=== PATIENT | female | born 1985 | race Caucasian/White ===

== ENCOUNTER 2018-12-27 09:10 | Emergency (ER) | payer OTHER ==
[~2018-12-27] VITALS: Ht 175.3 cm; Wt 130.0 kg
[2018-12-27] MEDS ORDERED: CYCL-259 PO (09:33)
[2018-12-27] MEDS ORDERED: DULO60CA7 PO (09:33)
[2018-12-27] MEDS ORDERED: TRAM50TA2 PO (09:33)
[2018-12-27] MEDS ORDERED: AMIT10TA PO (09:33)
[2018-12-27] MEDS ORDERED: PLEASE ENTER ALLERGIES MC SCH (10:00)
[2018-12-27] MEDS ORDERED: KETOROLAC 30 MG/1 ML IM ONE (10:00)
[2018-12-27] MEDS ORDERED: METHOCARBAMOL 750 MG TABLET PO ONE (10:00)
[2018-12-27] MEDS ORDERED: KETOROLAC 30 MG/1 ML ONE (10:12)
[2018-12-27] MEDS ORDERED: METHOCARBAMOL 750 MG TABLET ONE (10:12)
--- NOTE | 2018-12-27 10:20 | NUR ---
PT DECLINED XRAY UNTIL MEDICATED FOR PAIN. MEDS GIVEN PER ORDERS
--- NOTE | 2018-12-27 10:23 | NUR ---
TO XRAY VIA [facility]
[2018-12-27] MEDS ORDERED: KETOROLAC 30 MG/1 ML IVPush ONE (10:30)
[2018-12-27 11:30] VITALS: BP 117/54
--- NOTE | 2018-12-27 11:31 | NUR ---
Patient/Caregiver given discharge instructions and they have confirmed that they understand the instructions. Patient ambulatory with steady gait.
== END 2018-12-27 11:32 | disposition home or self-care (01) ==
LOC: ED 11:25
DX: M54.16 Radiculopathy, lumbar region (principal)
CPT/HCPCS: 72110; 96374; 99283; J1885; J7512

== ENCOUNTER 2019-01-07 12:11 | Emergency (ER) | payer OTHER ==
[~2019-01-07] VITALS: Ht 175.3 cm; Wt 100.0 kg
[~2019-01-07 12:11] MED LIST: AMIT10TA PO; CYCL-259 PO; DULO60CA7 PO; TRAM50TA2 PO
[2019-01-07] MEDS ORDERED: LORazepam 1MG TABLET PO ONE (12:30)
[2019-01-07] MEDS ORDERED: LORazepam 1MG TABLET ONE (12:42)
[2019-01-07 12:44] LABS: BASOPHILS % (AUTO) 0 % (0-1); EOSINOPHILS % (AUTO) 0 % (1-7); LYMPHOCYTES # (AUTO) 1.32 x10^3/uL (1-3.4); LYMPHOCYTES % (AUTO) 11 % (22-44); MD NO; MEAN CORPUSCULAR HEMOGLOBIN 29.4 pg (27.0-34.8); MEAN CORPUSCULAR HGB CONC 33.2 g/dL (32.4-35.8); MEAN CORPUSCULAR VOLUME 88.8 fL (80-100); MEAN PLATELET VOLUME 8.3 fL (7.4-10.4); MONOCYTES # (AUTO) 0.07 x10^3/uL (0.2-0.8); MONOCYTES % (AUTO) 1 % (2-9); NEUTROPHILS # (AUTO) 10.16 x10^3/uL (1.8-6.8); NEUTROPHILS % (AUTO) 88 % (42-75); PLATELET COUNT 372 x10^3/uL (130-400); RED BLOOD COUNT 5.23 x10^6/uL (3.82-5.3); RED CELL DISTRIBUTION WIDTH 14.1 % (9.6-15.2)
[2019-01-07 12:51] VITALS: BP 147/100
[2019-01-07 12:57] LABS: ALANINE AMINOTRANSFERASE 23 U/L (12-78); ALBUMIN 4.3 g/dL (3.4-5.0); ANION GAP 8 mmol/L (5-15); CHLORIDE 112 mmol/L (98-107); CREATININE 0.78 mg/dL (0.55-1.02)
[2019-01-07 13:05] LABS: ALKALINE PHOSPHATASE 105 U/L (45-117); BILIRUBIN,TOTAL 0.4 mg/dL (0.2-1.0); TOTAL PROTEIN 7.6 g/dL (6.4-8.2)
[2019-01-07 13:07] LABS: ACETAMINOPHEN < 2 mcg/mL (10-30); SALICYLATE LEVEL < 1.7 mg/dL (2.8-20.0)
--- NOTE | 2019-01-07 13:14 | NUR ---
3 BAGS LOCKED IN LOCKER
--- NOTE | 2019-01-07 13:18 | NUR ---
BIB EMS ON LEGAL HOLD FOR A STATEMENT THAT SHE MADE TO HER SIGNIGICANT OTHER THAT SHE WANTED TO . PT DENIES THAT SHE MADE THIS STATEMENT AND DENIES SUIDAL FEELINGS. PT PRESENTS WITH SUPERFICIAL CUTS ON BILAT ARMS BUT STATES THAT DOING THIS MAKES HER FEEL BETTER AND THAT IT WAS NOT A SUICIDAL ATTEMPT. PT CHANGED INTO [facility]. URINE OBTAINED AND SENT TO LAB. BREATHYLIZER OBTAINED AND IS 0.00.
--- NOTE | 2019-01-07 13:20 | NUR ---
LATE ENTRY FOR 1311 RECEIVED BEDSIDE REPORT FROM LLUVIA DRISCOLL RN. PT RESTING ON [facility]. ALL SAFETY MEASURES OBTAINED. WILL CONTINUE TO MONITOR.
[2019-01-07 13:42] LABS: MICROSCOPIC AUTO
[2019-01-07 13:43] LABS: CULTURE INDICATED? YES
[2019-01-07 13:54] LABS: AMPHETAMINE SCREEN, URINE Negative (Negative); BARBITURATE SCREEN, URINE Negative (Negative); BENZODIAZEPINE SCREEN, URINE Negative (Negative); CANNABINOID SCREEN, URINE Positive (Negative); METHADONE SCREEN, URINE Negative (Negative); OPIATE SCREEN, URINE Negative (Negative)
[2019-01-07 13:55] LABS: COCAINE SCREEN, URINE Negative (Negative)
[2019-01-07] MEDS ORDERED: BACITRACIN ZINC OINT 500U/GM, 0.9 GM ONE (16:56)
--- NOTE | 2019-01-07 17:33 | NUR ---
LATE ENTRY FOR 1430 PT RESTING ON GURNEY. PT TEARFUL AT TIMES. NO ACUTE DISTRESS NOTED. ALL SAFETY MEASURES OBTAINED.
--- NOTE | 2019-01-07 17:34 | NUR ---
Patient/Caregiver given discharge instructions and they have confirmed that they understand the instructions. Patient ambulatory with steady gait. PT DENIES HI/SI AT THIS TIME. PT LEFT WITH ALL PERSONAL BELONGINGS.
--- NOTE | 2019-01-07 17:34 | NUR ---
LATE ENTRY FOR 1515 PT RESTING ON [facility]. PT COMPLETED CONVERSATION/ASSESSMENT WITH [facility]. NO ACUTE DISTRESS NOTED. ALL SAFETY MEASURES OBTAINED. WILL CONTINUE TO MONITOR.
--- NOTE | 2019-01-07 17:36 | NUR ---
LATE ENTRY FOR 1630 NO ACUTE DISTRESS NOTED. ALL SAFETY MEASURES OBTAINED. NO NEEDS REQUESTED AT THIS TIME.
== END 2019-01-07 17:39 | disposition home or self-care (01) ==
LOC: ED 12:30
DX: S40.812A Abrasion of left upper arm, initial encounter (principal); S40.811A Abrasion of right upper arm, initial encounter; S50.811A Abrasion of right forearm, initial encounter; S60.811A Abrasion of right wrist, initial encounter; X58.XXXA Exposure to other specified factors, initial encounter; F33.9 Major depressive disorder, recurrent, unspecified; Y93.89 Activity, other specified; Y92.89 Other specified places as the place of occurrence of the external cause; Y99.8 Other external cause status
CPT/HCPCS: 36415; 80053; 80307; 80329; 81001; 84703; 85025; 87086; 99284; G0480